=== PATIENT | female | born 1985 | race Caucasian/White ===

== ENCOUNTER → 2018-05-27 07:11 | Outpatient (CLI) | payer OTHER, SELFPAY ==
--- NOTE | 2018-05-27 07:13 | DI.US.S_ITS ---
PROCEDURE: US OB <= 14 WEEKS FETUS INDICATIONS: DATES OUTSIDE/PRIOR DATING DATA: Last menstrual period (LMP): 03/29/18. LMP-based estimated date of delivery (VIKAS): 01/03/18. First dating scan (date and location): 05/27/18. Estimated date of delivery (VIKAS) from first dating scan: 01/17/19. TECHNIQUE: Real-time scanning was performed of the fetus and maternal pelvic organs, with image documentation. Endovaginal scanning was also performed to better visualize the fetus and maternal ovaries. COMPARISON: None. FINDINGS: Embryo: [place]-rump length measures 7 mm corresponding to 6 weeks 3 days. Heart rate measures 111 beats per minute. Measurement variability in dating: +/- 4 weeks by LMP, +/- 7 days by mean sac diameter (use before 6 weeks gestation if crown-rump length not able to be measured), +/- 5 days by crown-rump length (up to 8 weeks 6 days gestation), +/- 7 days by crown-rump length (up to 13 weeks 6 days gestation). Maternal organs: Ovaries within normal limits. Limited images through the kidneys demonstrate no hydronephrosis. IMPRESSION: 6 week 3 day single living IUP. Dictated by: Ozzie Harmon [facility] Interpreted: Kodi Palacios MD on 05/27/2018 at 8:31 Approved by: Kodi Palacios M.D. on 05/27/2018 at 9:53
[2018-05-27 11:48] LABS: Add Manual Diff / Slide Review NO; Basophils Percent Auto 0.6 % (0-2); Eosinophils Percent Auto 0.9 % (2-4); Hematocrit 35.2 % (36-46); Hemoglobin 12.1 g/dL (12.0-16.0); Lymphocytes Percent Auto 32.3 % (25-40); Mean Corpuscular HGB Conc 34.3 % (30-36); Mean Corpuscular Hemoglobin 30.8 PG (26-34); Mean Corpuscular Volume 89.7 fL (80-100); Monocytes Percent Auto 6.9 % (3-14); Neutrophils Absolute Auto 4900 /uL (3000-5900); Neutrophils Percent Auto 59.3 % (50-75); Platelet Count 216 X10^3/uL (150-400); Red Blood Cell Count 3.92 X10^6/uL (4.0-5.2); White Blood Cell Count 8.2 X10^3/uL (4.5-11.0)
[2018-05-27 13:04] LABS: Hepatitis B Surface Antigen NEGATIVE s/c (NEGATIVE)
[2018-05-27 13:19] LABS: Appearance Urine UA CLEAR; Bilirubin Urine UA NEGATIVE (NEGATIVE); Color Urine UA YELLOW; Glucose Urine UA NEGATIVE (Normal); Ketones Urine UA NEGATIVE (NEGATIVE); Leukocyte Esterase Urine UA NEGATIVE (NEGATIVE); Nitrite Urine UA NEGATIVE (Negative); Occult Blood Urine UA NEGATIVE (Negative); Protein Urine UA NEGATIVE (Negative); Specific Gravity Urine UA 1.015 (1.000-1.035); Urobilinogen Urine UA 0.2 E.U./dL (0.2)
[2018-05-27 13:25] LABS: HIV 1 and 2 Antibody NEGATIVE (NEGATIVE); Hep C Virus Ab w/Reflex Quant NEGATIVE s/c (NEGATIVE)
[2018-05-28 11:12] LABS: RPR Screen Nonreactive (Nonreactive)
[2018-05-28 15:00] LABS: HSV1IGG < 0.90 index (< 0.90)
== END ==
PROVIDERS: Visit Provider Specialist
DX: Z34.01 Encounter for supervision of normal first pregnancy, first trimester (principal); Z3A.01 Less than 8 weeks gestation of pregnancy
CPT/HCPCS: 36415; 76801; 76817; 80055; 81003; 86695; 86696; 86703; 86787; 86803; 86850; 86900; 86901; 87086

== ENCOUNTER → 2018-07-08 15:13 | Outpatient (CLI) | payer OTHER, SELFPAY ==
[2018-07-08 15:38] LABS: Appearance Urine UA CLEAR; Bilirubin Urine UA NEGATIVE (NEGATIVE); Color Urine UA YELLOW; Glucose Urine UA NEGATIVE (Negative); Ketones Urine UA NEGATIVE (NEGATIVE); Leukocyte Esterase Urine UA NEGATIVE (NEGATIVE); Nitrite Urine UA NEGATIVE (Negative); Occult Blood Urine UA TRACE-LYSED (Negative); Protein Urine UA NEGATIVE (Negative); Specific Gravity Urine UA <=1.005 (1.000-1.035); Urobilinogen Urine UA 0.2 E.U./dL (0.2); pH Urine UA 5.5 (4.5-8.0)
[2018-07-08 15:49] LABS: RBC Urine 5-10/HPF (0-5/HPF); Squamous Epithelial Cell Urine 1-5 /HPF; WBC Urine 1-5/HPF (0-5/HPF)
[2018-07-08 15:50] LABS: Bacteria Urine Moderate (10-30)
== END ==
PROVIDERS: Visit Provider Specialist
DX: R39.9 Unspecified symptoms and signs involving the genitourinary system (principal)
CPT/HCPCS: 81001

== ENCOUNTER → 2018-08-22 15:33 | Outpatient (CLI) | payer OTHER, SELFPAY ==
[2018-08-29 15:12] LABS: AFP, Serum 37.8 ng/mL; Calc Gestational Age 18.9; Cigarette Smoker N; Donated Egg NOT GIVEN; Donor Egg Age NOT GIVEN; Estriol, Free 1.98 ng/mL; Inhibin A, Dimeric 300 pg/mL; Maternal Ethnicity NOT GIVEN; Maternal Weight 140 lbs; Number of Fetuses 1; Previous Pregnancy Down Syndro NOT GIVEN; hCG, MoM 0.72; hCG, Serum 16.4 IU/mL
== END ==
PROVIDERS: Visit Provider Specialist
DX: Z3A.18 18 weeks gestation of pregnancy (principal)
CPT/HCPCS: 36415; 82105; 82677; 84702; 86336

== ENCOUNTER → 2018-09-23 14:48 | Outpatient (CLI) | payer OTHER, SELFPAY ==
--- NOTE | 2018-09-23 14:49 | DI.US.S_ITS ---
PROCEDURE: US OB >= 14 WEEKS FETUS INDICATIONS: ANATOMY SCAN OUTSIDE/PRIOR DATING DATA: Last menstrual period (LMP): 03/29/18. LMP-based estimated date of delivery (VIKAS): 01/03/19. First dating scan (date and location): 05/27/20. Estimated date of delivery (VIKAS) from first dating scan: 01/17/19. TECHNIQUE: Real-time scanning was performed of the fetus, with image documentation and biometric measurements. Endovaginal scanning: No COMPARISON: [facility], OB <= 14 WEEKS FETUS, 06/17/2018, 9:11. [facility], OB <= 14 WEEKS FETUS, 05/27/2018, 7:23. [facility], , OB > 14 WEEKS, 08/22/2018, 15:18. FINDINGS: General: A single living intrauterine gestation is present. Presentation: Vertex. Placenta: Placental position is anterior, without previa. Amniotic fluid index: 15.3 cm. heart rate: 140 beats per minute. Maternal cervical canal: 4.0 cm. biometrics: Biparietal diameter: 23 weeks 6 days Head circumference: 24 weeks 3 days Abdominal circumference: 24 weeks 4 days Femur length: 22 weeks 2 days Estimated gestational age from initial scan: 23 weeks 3 days Composite gestational age from present scan: 23 weeks 4 days Estimated weight and percentile: 618 g; 54th percentile Measurement variability for biometric dating: +/- 7 days from 14 weeks to 15 weeks 6 days gestation, +/- 10 days from 16 weeks to 21 weeks 6 days gestation, +/- 2 weeks from 22 weeks to 27 weeks 6 days gestation, +/- 3 weeks for 28 weeks gestation or later. weight reference: 4500 g or EFW >90/95% is considered macrosomia or large for gestational age. EFW <10% is small for gestational age. EFW 5% or less is considered intra-uterine growth restriction. Anatomic survey: Neuro: Ventricles are non-dilated at 9 mm. Cisterna magna is normal at 7 mm. Cerebellum is normal in size and morphology. Nuchal skin fold: Normal at 3 mm. Face: Nose and lips are within normal limits. The facial profile is not well-seen on this exam. Spine: No ultrasound evidence for spina bifida. Heart: 4-chambered heart is present. Exam is mildly degraded by motion artifact; within this context, the right and left ventricular outflow tracts appear grossly unremarkable. Diaphragm: Diaphragm is intact. Stomach: Left-sided stomach is present. Kidneys: No hydronephrosis identified Cord: 3-vessel cord noted. Bladder: Unremarkable in size. Extremities: All 4 extremities identified. IMPRESSION: Single intrauterine gestation with heart rate of 140 beats per minute and composite gestational age of 23 weeks 4 days. anatomic findings as described above; the facial profile is not well-seen on this exam, and the ventricular outflow tracts are mildly degraded by motion artifact. Attention on followup exams suggested. Dictated by: Ozzie Harmon [facility] Interpreted: Watson Huffman MD on 09/23/2018 at 16:21 Approved by: Watson Huffman M.D. on 09/24/2018 at 2:09
== END ==
PROVIDERS: Visit Provider Specialist
DX: Z34.02 Encounter for supervision of normal first pregnancy, second trimester (principal); Z3A.23 23 weeks gestation of pregnancy
CPT/HCPCS: 76811

== ENCOUNTER → 2018-09-30 08:16 | Outpatient (CLI) | payer OTHER, SELFPAY ==
--- NOTE | 2018-09-30 08:17 | DI.US.S_ITS ---
PROCEDURE: US OB FOLLOW UP INDICATIONS: F/U Heart structures and facial profile not well visualized OUTSIDE/PRIOR DATING DATA: Last menstrual period (LMP): 03/29/18. LMP-based estimated date of delivery (VIKAS): 01/03/19. First dating scan (date and location): 05/27/20. Estimated date of delivery (VIKAS) from first dating scan: 01/17/19, plus or -5 days. TECHNIQUE: Real-time scanning was performed of the fetus, with image documentation. Endovaginal scanning: Not needed for this study. COMPARISON: None. FINDINGS: A single living intrauterine gestation is present. Presentation: Vertex. Placenta: Placental position is anterior, without previa. Amniotic fluid index: 14.3 cm, normal range is 5-24 cm. heart rate: 139 beats per minute. Maternal cervical canal: 3.9 cm long. Normal lower limit is 2.5 cm. This limited OB ultrasound is to further evaluate for facial appearance and cardiac appearance, including left and right ventricular outflow tract. These all appeared normal. IMPRESSION: Completion of anatomic survey, no abnormality found, delivery date is projected to be centered on 01/17/19, + or -5 days. Dictated by: Han Reyez M.D. on 10/02/2018 at 14:12 Approved by: Han Reyez M.D. on 10/02/2018 at 14:52
== END ==
PROVIDERS: Visit Provider Specialist
DX: Z36.89 Encounter for other specified antenatal screening (principal); Z3A.25 25 weeks gestation of pregnancy
CPT/HCPCS: 76816

== ENCOUNTER → 2018-10-14 08:42 | Outpatient (CLI) | payer OTHER, SELFPAY ==
[2018-10-14 10:32] LABS: GTT (PREG) 1 Hour PP 50gm Dose 105 mg/dL (76-139)
[2018-10-14 10:38] LABS: Hematocrit 29.7 % (36-46); Hemoglobin 10.2 g/dL (12.0-16.0)
== END ==
PROVIDERS: Visit Provider Specialist
DX: Z34.02 Encounter for supervision of normal first pregnancy, second trimester (principal); Z3A.26 26 weeks gestation of pregnancy
CPT/HCPCS: 36415; 82950; 85014; 85018

== ENCOUNTER → 2018-11-18 15:00 | Oncology outpatient (ONC) | payer OTHER, SELFPAY ==
--- NOTE | 2018-10-29 09:33 | ONC.SCHED ---
Traci does not require [facility], Info Only
[2018-11-04] MEDS: IRON SUCROSE 200 MG in SODIUM CHLORIDE 0.9% 100 ML 440 ML IV (11:04)
[2018-11-04 11:16] VITALS: BP 105/64; PULSE 87; RESP 18; TEMP 36.8; O2SAT 95
[2018-11-07] MEDS: IRON SUCROSE 200 MG in SODIUM CHLORIDE 0.9% 100 ML 440 ML IV (15:50)
[2018-11-07 16:35] VITALS: BP 102/57; PULSE 73; RESP 16; TEMP 37.1
[2018-11-11] MEDS: IRON SUCROSE 200 MG in SODIUM CHLORIDE 0.9% 100 ML 110 ML IV (15:36)
[2018-11-11 15:42] VITALS: BP 105/58; PULSE 80; RESP 16; TEMP 36.7; O2SAT 97
[2018-11-14 16:24] VITALS: BP 107/57; PULSE 78; RESP 16; TEMP 36.7; O2SAT 94
[2018-11-14] MEDS: IRON SUCROSE 200 MG in SODIUM CHLORIDE 0.9% 100 ML 440 ML IV (16:24)
[2018-11-18] MEDS: IRON SUCROSE 200 MG in SODIUM CHLORIDE 0.9% 100 ML 440 ML IV (15:59)
[2018-11-18 16:52] VITALS: BP 100/60; PULSE 68; RESP 16; TEMP 36.7; O2SAT 96
== END ==
PROVIDERS: Visit Provider Specialist
DX: O28.0 Abnormal hematological finding on antenatal screening of mother (principal); Z3A.31 31 weeks gestation of pregnancy
CPT/HCPCS: 96365; J1756

== ENCOUNTER → 2018-11-29 08:25 | Outpatient (CLI) | payer OTHER, SELFPAY ==
[2018-11-29 09:22] LABS: Hematocrit 32.8 % (36-46); Hemoglobin 11.3 g/dL (12.0-16.0)
== END ==
PROVIDERS: Visit Provider Specialist
DX: O99.019 Anemia complicating pregnancy, unspecified trimester (principal); Z3A.30 30 weeks gestation of pregnancy
CPT/HCPCS: 36415; 85014; 85018

== ENCOUNTER → 2018-12-23 09:51 | Outpatient (CLI) | payer OTHER, SELFPAY ==
[2018-12-24 15:11] LABS: Strep Grp B PCR NEG for Grp B Strep
== END ==
PROVIDERS: Visit Provider Specialist
DX: Z34.83 Encounter for supervision of other normal pregnancy, third trimester (principal); Z3A.36 36 weeks gestation of pregnancy
CPT/HCPCS: 87653

== ENCOUNTER 2019-01-13 21:28 | Inpatient (IN) | payer OTHER, SELFPAY ==
[2019-01-13 22:20] VITALS: BP 116/57
[2019-01-13 23:25] LABS: Add Manual Diff / Slide Review NO; Basophils Absolute Auto 0 /uL (0-100); Basophils Percent Auto 0.2 % (0-2); Eosinophils Absolute Auto 100 /uL (0-450); Eosinophils Percent Auto 0.8 % (2-4); Hemoglobin 11.6 g/dL (12.0-16.0); Lymphocytes Absolute Auto 2200 /uL (1100-4500); Mean Corpuscular Hemoglobin 31.8 PG (26-34); Mean Corpuscular Volume 93.5 fL (80-100); Monocytes Absolute Auto 600 /uL (0-900); Monocytes Percent Auto 6.8 % (3-14); Neutrophils Absolute Auto 6600 /uL (1500-7000); Neutrophils Percent Auto 69.2 % (50-75); Platelet Count 186 X10^3/uL (150-400); Red Blood Cell Count 3.64 X10^6/uL (4.0-5.2); Red Cell Distribution Width 13.8 % (11.6-14.8); White Blood Cell Count 9.6 X10^3/uL (4.5-11.0)
--- NOTE | 2019-01-14 07:19 | PM.OBHP.1 ---
OB HPI Date/Time Date of admission: 01/14/19 Date Patient Seen: 01/14/19 Time Patient Seen: 07:20 History of Present Condition Chief complaint: : 2 Para: 1 Estimated Date of Delivery: 01/17/19 Estimated Gestational Age (weeks): 39 Narrative: Sandra Goel is a 33 year old female two para one two para one who has had an uneventful . The patient's was complicated only by anemia. She is GBS negative. Her glucose screen was negative. Her antepartum abnormality screenings were entirely normal. Patient had adequate fundal growth and remained normotensive throughout her . Indications Indication for induction OB: other (Premature spontaneous rupture the membranes) History of Present care: good care, initiated at week # (9) and pounds weight gain (41 lb) Dating criteria: LMP confirmed by 1st trimester US Ultrasounds: normal 1st trimester US and normal mid trimester US Obstetrical complications: none Medical complications: none Preadmission Labs Blood type: A (+) positive -: Antibody screen: negative, Cystic fibrosis screen: unknown, GBS status: negative, HBsAG: negative, HIV: negative, HSV 1: negative, HSV 2: negative and RPR/VDLR: negative -: Chlamydia screen: detected (Negative) and Gonorrhea screen: detected (Negative) -: Rubella: immune and Varicella: immune HCT: 30 HCAB: negative PAP: Normal Integrated screen: Negative Sequential screen: Negative Quad screen: Normal 1 hr GTT: 105 Evaluation Evaluation Laboratory results: Laboratory Tests 01/13/19 01/13/19 22:30 22:30 WBC 9.6 RBC 3.64 L Hgb 11.6 L Hct 34.0 L MCV 93.5 MCH 31.8 MCHC 34.0 RDW 13.8 Plt Count 186 Neut % (Auto) 69.2 Lymph % (Auto) 23.0 L [place] % (Auto) 6.8 Eos % (Auto) 0.8 L Baso % (Auto) 0.2 Neut # (Auto) 6600 Lymph # (Auto) 2200 [place] # (Auto) 600 Eos # (Auto) 100 Baso # (Auto) 0 Blood Type A Positive Antibody Screen Negative [facility] Medical History Atypical mole (Chronic) Positive PPD (Chronic) Social History Smoking Status: Never smoker Social History Smoking Status: Never smoker Meds Home Medications Medication Instructions Recorded Confirmed Type 1 tab PO DAILY 05/27/18 01/13/19 History vitamin,calcium,qlqjncec-kjdm-cnpmk acid tablet Allergies Allergy/AdvReac Type Severity Reaction Status Date / Time Sulfa (Sulfonamide Allergy Unknown Verified 01/13/19 22:20 Antibiotics) [SULFA (SULFONAMIDE ANTIBIOTICS)] Review of Systems Review of Systems All systems reviewed & are unremarkable except as noted in HPI and below Exam Const General: cooperative and healthy appearing [facility] Head: normal to inspection Ears: hearing grossly normal bilaterally Nose: external nose normal Face and sinus: normal facial exam Mouth: oral mucosae normal, lip normal, tongue normal and moist mucous membranes Teeth and gingiva: dentition normal Throat: posterior oropharynx normal Eyes General: appearance normal, both eyes and all related structures Neck Neck: normal visual inspection and full ROM Chest Chest: normal inspection of the chest and normal palpation of entire chest wall Breast inspection: normal inspection of the breasts and normal inspection of the axillae Breast Palpation: normal palpation of the breasts and normal palpation of the axillae Resp Effort & Inspection: normal respiratory effort Auscultation: clear to auscultation bilaterally Cardio Palpation: normal PMI Rate: regular rate Rhythm: regular rhythm Heart Sounds: S1 normal and S2 normal GI Inspection: normal to inspection Palpation: soft and no hepatosplenomegaly Percussion: normal to percussion Auscultation: normal bowel sounds Uterus Location (Fundal Height): 40 Presentation: vertex Estimated Weight (lbs): 8 Amniotic Fluid: clear Back/Spine/Pelvis Thoracic/Lumbar Spine: thoracic and lumbar spine normal to inspection Skin General: no rashes or lesions noted Neuro General: alert, oriented x3, tone normal and moves all extremities Cognition: normal cognition Speech: speech normal Gait: normal gait Motor: muscle tone normal throughout Sensory Exam: no sensory deficits noted Extrem General: normal to inspection and normal exam except as noted Psych Appearance: grossly normal and well kempt Mental Status: mental status grossly normal Speech and Movement: speech and movement normal Objective Labs Result Diagrams: 01/13/19 22:30 Labs: Laboratory Results - last 24 hr 01/13/19 01/13/19 22:30 22:30 WBC 9.6 RBC 3.64 L Hgb 11.6 L Hct 34.0 L MCV 93.5 MCH 31.8 MCHC 34.0 RDW 13.8 Plt Count 186 Neut % (Auto) 69.2 Lymph % (Auto) 23.0 L [place] % (Auto) 6.8 Eos % (Auto) 0.8 L Baso % (Auto) 0.2 Neut # (Auto) 6600 Lymph # (Auto) 2200 [place] # (Auto) 600 Eos # (Auto) 100 Baso # (Auto) 0 Blood Type A Positive Antibody Screen Negative Assessment and Plan Assessment and Plan Assessment and Plan narrative: Term intrauterine Premature spontaneous rupture membranes
--- NOTE | 2019-01-14 07:31 | P.HPOB_ITS ---
OB HPI Date/Time Date of admission: 01/14/19 Date Patient Seen: 01/14/19 Time Patient Seen: 07:20 History of Present Condition Chief complaint: : 2 Para: 1 Estimated Date of Delivery: 01/17/19 Estimated Gestational Age (weeks): 39 Narrative: Sandra Goel is a 33 year old female two para one two para one who has had an uneventful . The patient's was complicated only by anemia. She is GBS negative. Her glucose screen was negative. Her antepartum abnormality screenings were entirely normal. Patient had adequate fundal growth and remained normotensive throughout her . Indications Indication for induction OB: other (Premature spontaneous rupture the membranes) History of Present care: good care, initiated at week # (9) and pounds weight gain (41 lb) Dating criteria: LMP confirmed by 1st trimester US Ultrasounds: normal 1st trimester US and normal mid trimester US Obstetrical complications: none Medical complications: none Preadmission Labs Blood type: A (+) positive -: Antibody screen: negative, Cystic fibrosis screen: unknown, GBS status: negative, HBsAG: negative, HIV: negative, HSV 1: negative, HSV 2: negative and RPR/VDLR: negative -: Chlamydia screen: detected (Negative) and Gonorrhea screen: detected (Negative) -: Rubella: immune and Varicella: immune HCT: 30 HCAB: negative PAP: Normal Integrated screen: Negative Sequential screen: Negative Quad screen: Normal 1 hr GTT: 105 Evaluation Evaluation Laboratory results: Laboratory Tests 01/13/19 01/13/19 22:30 22:30 WBC 9.6 RBC 3.64 L Hgb 11.6 L Hct 34.0 L MCV 93.5 MCH 31.8 MCHC 34.0 RDW 13.8 Plt Count 186 Neut % (Auto) 69.2 Lymph % (Auto) 23.0 L [place] % (Auto) 6.8 Eos % (Auto) 0.8 L Baso % (Auto) 0.2 Neut # (Auto) 6600 Lymph # (Auto) 2200 [place] # (Auto) 600 Eos # (Auto) 100 Baso # (Auto) 0 Blood Type A Positive Antibody Screen Negative [facility] Medical History Atypical mole (Chronic) Positive PPD (Chronic) Social History Smoking Status: Never smoker Social History Smoking Status: Never smoker Meds Home Medications Medication Instructions Recorded Confirmed Type 1 tab PO DAILY 05/27/18 01/13/19 History vitamin,calcium,xccslztw-bugh-bsthx acid tablet Allergies Allergy/AdvReac Type Severity Reaction Status Date / Time Sulfa (Sulfonamide Allergy Unknown Verified 01/13/19 22:20 Antibiotics) [SULFA (SULFONAMIDE ANTIBIOTICS)] Review of Systems Review of Systems All systems reviewed & are unremarkable except as noted in HPI and below Exam Const General: cooperative and healthy appearing [facility] Head: normal to inspection Ears: hearing grossly normal bilaterally Nose: external nose normal Face and sinus: normal facial exam Mouth: oral mucosae normal, lip normal, tongue normal and moist mucous membranes Teeth and gingiva: dentition normal Throat: posterior oropharynx normal Eyes General: appearance normal, both eyes and all related structures Neck Neck: normal visual inspection and full ROM Chest Chest: normal inspection of the chest and normal palpation of entire chest wall Breast inspection: normal inspection of the breasts and normal inspection of the axillae Breast Palpation: normal palpation of the breasts and normal palpation of the a xillae Resp Effort & Inspection: normal respiratory effort Auscultation: clear to auscultation bilaterally Cardio Palpation: normal PMI Rate: regular rate Rhythm: regular rhythm Heart Sounds: S1 normal and S2 normal GI Inspection: normal to inspection Palpation: soft and no hepatosplenomegaly Percussion: normal to percussion Auscultation: normal bowel sounds Uterus Location (Fundal Height): 40 Presentation: vertex Estimated Weight (lbs): 8 Amniotic Fluid: clear Back/Spine/Pelvis Thoracic/Lumbar Spine: thoracic and lumbar spine normal to inspection Skin General: no rashes or lesions noted Neuro General: alert, oriented x3, tone normal and moves all extremities Cognition: normal cognition Speech: speech normal Gait: normal gait Motor: muscle tone normal throughout Sensory Exam: no sensory deficits noted Extrem General: normal to inspection and normal exam except as noted Psych Appearance: grossly normal and well kempt Mental Status: mental status grossly normal Speech and Movement: speech and movement normal Objective Labs Result Diagrams: 01/13/19 22:30 Labs: Laboratory Results - last 24 hr 01/13/19 01/13/19 22:30 22:30 WBC 9.6 RBC 3.64 L Hgb 11.6 L Hct 34.0 L MCV 93.5 MCH 31.8 MCHC 34.0 RDW 13.8 Plt Count 186 Neut % (Auto) 69.2 Lymph % (Auto) 23.0 L [place] % (Auto) 6.8 Eos % (Auto) 0.8 L Baso % (Auto) 0.2 Neut # (Auto) 6600 Lymph # (Auto) 2200 [place] # (Auto) 600 Eos # (Auto) 100 Baso # (Auto) 0 Blood Type A Positive Antibody Screen Negative Assessment and Plan Assessment and Plan Assessment and Plan narrative: Term intrauterine Premature spontaneous rupture membranes
[2019-01-14] MEDS: miSOPROStol 25 MCG TABLET VAG ×2 (08:30→12:46)
[2019-01-14] MEDS: LACTATED RINGERS 1,000 ML 100 ML IV ×2 (16:28→22:20)
[2019-01-14] MEDS: OXYTOCIN PREMIX 30 UNIT/500 ML PLAST..BAG IV (16:50)
--- NOTE | 2019-01-14 20:02 | P.TNLD_ITS ---
Visit Information Visit Information Date of evaluation: 01/14/19 Primary OB Provider: Rajwinder Pina [facility] Medical History Atypical mole (Chronic) Positive PPD (Chronic) Social History Smoking Status: Never smoker Social History Smoking Status: Never smoker Objective Labs Result Diagrams: 01/13/19 22:30 Labs: Laboratory Results - last 24 hr 01/13/19 01/13/19 22:30 22:30 WBC 9.6 RBC 3.64 L Hgb 11.6 L Hct 34.0 L MCV 93.5 MCH 31.8 MCHC 34.0 RDW 13.8 Plt Count 186 Neut % (Auto) 69.2 Lymph % (Auto) 23.0 L [place] % (Auto) 6.8 Eos % (Auto) 0.8 L Baso % (Auto) 0.2 Neut # (Auto) 6600 Lymph # (Auto) 2200 [place] # (Auto) 600 Eos # (Auto) 100 Baso # (Auto) 0 Blood Type A Positive Antibody Screen Negative Evaluation Evaluation Laboratory results: Laboratory Tests 01/13/19 01/13/19 22:30 22:30 WBC 9.6 RBC 3.64 L Hgb 11.6 L Hct 34.0 L MCV 93.5 MCH 31.8 MCHC 34.0 RDW 13.8 Plt Count 186 Neut % (Auto) 69.2 Lymph % (Auto) 23.0 L [place] % (Auto) 6.8 Eos % (Auto) 0.8 L Baso % (Auto) 0.2 Neut # (Auto) 6600 Lymph # (Auto) 2200 [place] # (Auto) 600 Eos # (Auto) 100 Baso # (Auto) 0 Blood Type A Positive Antibody Screen Negative
--- NOTE | 2019-01-14 20:03 | PM.OBPNLAB ---
Date/Time Date Patient Seen: 01/14/19 Time Patient Seen: 20:03 Pain Control Pain control: tolerating well Pelvic Exam Dilation (cm): 6 Effacement (%): 85 station: -1 Amniotic membrane status: Ruptured Contractions Contractions on admission: irregular Monitor mode: External Pitocin rate (mU/min): 4 Contraction frequency (min): 2 Contraction duration (min): 1 Contraction pattern: Regular Contraction intensity: Strong/Firm Status status: Category l Heart Rate Baseline: 130 Monitor Accelerations: Present Monitor Decelerations: Absent Monitor Variability: Moderate Assessment and Plan Assessment: active labor and induction ongoing Plan: continuous present management and other (Hands and knees, changing positions, peanut ball)
[2019-01-14] MEDS: CEFAZOLIN 2 GM/100 ML FROZ.PIGGY IV (20:10)
[2019-01-15] MEDS: LACTATED RINGERS 1,000 ML 500 ML IV (00:52)
--- NOTE | 2019-01-15 03:10 | PM.OBPRVD ---
Events: Labor Augmentation, Premature Rupture of Membrane and Prolonged Rupture of Membrane Delivery date: 01/15/19 Intrapartal events: Intolerance Cervical ripening method: per misoprostal protocol Induction method: per pitocin protocol Delivery augmentation: pitocin Delivery monitor: external FHT and external uterine Route of delivery: forceps (Laufe) Indication for instrumentation: nonreassuring FHR tracing L&D Laceration Description: Perineal - 3rd Degree Delivery repair: vicryl and chromic Estimated blood loss (mL): 200 Anesthesia type: Epidural Complications: None Narrative: The patient was complete and pushed for 25 minutes. At 2:11 a.m., the vertex delivered with outlet forceps using the Laufe's, over an intact perineum. The forceps were placed due to recurrent deep variable decelerations with pushing. A tight nuchal cord was cut on the perineum. The remainder of the body delivered without difficulty and was placed on mom's abdomen. Cord blood was obtained under sterile conditions for cord blood banking. Pitocin was given in the IV fluids. The placenta delivered intact with a 3 vessel cord at 2:18 a.m. the fundus was massaged to firm. A partial third-degree laceration was noted. This was repaired on the sphincter fascia with 0 Vicryl. The vaginal mucosa was reapproximated using 2 0 Vicryl. The perineum was reapproximated using 2 0 Vicryl. The skin was closed with 3 0 chromic in a subcuticular fashion. Three retention sutures were placed on the perineum using 3 0 chromic. Hemostasis was achieved. A rectal exam was performed and there were no stitches or tears into the rectum. Estimated blood loss 200 cc. Apgars 6 at 1 minute and 8 at 5 minutes. Epidural analgesia. . Mom and infant stable to recovery. Plan for aftercare: To routine care
--- NOTE | 2019-01-15 03:16 | P.PCNOB_ITS ---
Events: Labor Augmentation, Premature Rupture of Membrane and Prolonged Rupture of Membrane Delivery date: 01/15/19 Intrapartal events: Intolerance Cervical ripening method: per misoprostal protocol Induction method: per pitocin protocol Delivery augmentation: pitocin Delivery monitor: external FHT and external uterine Route of delivery: forceps (Laufe) Indication for instrumentation: nonreassuring FHR tracing L&D Laceration Description: Perineal - 3rd Degree Delivery repair: vicryl and chromic Estimated blood loss (mL): 200 Anesthesia type: Epidural Complications: None Narrative: The patient was complete and pushed for 25 minutes. At 2:11 a.m., the vertex delivered with outlet forceps using the Laufe's, over an intact perineum. The forceps were placed due to recurrent deep variable decelerations with pushing. A tight nuchal cord was cut on the perineum. The remainder of the body delivered without difficulty and was placed on mom's abdomen. Cord blood was obtained under sterile conditions for cord blood banking. Pitocin was given in the IV fluids. The placenta delivered intact with a 3 vessel cord at 2:18 a.m. the fundus was massaged to firm. A partial third-degree laceration was noted. This was repaired on the sphincter fascia with 0 Vicryl. The vaginal mucosa was reapproximated using 2 0 Vicryl. The perineum was reapprox imated using 2 0 Vicryl. The skin was closed with 3 0 chromic in a subcuticular fashion. Three retention sutures were placed on the perineum using 3 0 chromic. Hemostasis was achieved. A rectal exam was performed and there were no stitches or tears into the rectum. Estimated blood loss 200 cc. Apgars 6 at 1 minute and 8 at 5 minutes. Epidural analgesia. . Mom and stable to recovery. Plan for aftercare: To routine care
[2019-01-15] MEDS: IBUPROFEN 600 MG TABLET PO ×2 (06:44→17:30)
[2019-01-15] MEDS: DERMOPLAST SPRAY 20% 60 ML 1 SPRAY TOP (06:44)
[2019-01-15 07:49] LABS: Specimen Label Kit collection
[2019-01-16] MEDS: IBUPROFEN 600 MG TABLET PO ×2 (00:36→10:33)
[2019-01-16 08:26] LABS: Hemoglobin 11.3 g/dL (12.0-16.0)
[2019-01-16] MEDS: DOCUSATE 250 MG CAPSULE PO (10:32)
[2019-01-16] MEDS: PRENATAL VIT,CALC/IRON/FOLIC 1 TABLET 1 TAB PO (10:33)
[2019-01-16 14:19] VITALS: BP 109/47; PULSE 76; RESP 17; TEMP 36.6
--- NOTE | 2019-02-05 13:16 | P.DS_ITS ---
Discharge Providers Date of admission: 01/13/19 21:28 Discharge Date: 01/16/19 Consults: 01/15/19 06:28 Consult to Obstetrics And Gynecology Professor Routine Comment: Discharge provider: Christine Johnson MD Summary Date Patient Seen: 01/16/19 Time Patient Seen: 07:30 Procedures: Epidural analgesia Outlet forceps delivery Third-degree laceration repair Hospital Course: Patient is a 33-year-old 1 para 1 who presented on 01/14/2019 with spontaneous rupture of membranes. She did not go into labor spontaneously. Pitocin augmentation was added. She received an epidural for pain management. She progressed in labor and while pushing the baby was having deep variable decelerations. Outlet forceps were applied. A third-degree laceration was repaired. Her course was unremarkable and she was discharged home on 01/16/2019. Peripartum Data Infant Delivery Method: Assisted Delivery (Outlet forceps) Laceration description: Perineal - 3rd Degree Episiotomy description: None Procedures: Epidural analgesia Outlet forceps delivery Pitocin augmentation of labor Third-degree laceration repair complications: none Status at Discharge Cognitive/behavioral status at discharge: oriented Functional status at discharge: independent ambulation Overall status at discharge: patient is progressing back to baseline Time Spent with Patient Total time spent providing and/or coordinating discharge services: Less than 30 minutes Objective Labs Result Diagrams: 01/16/19 08:10 Exam Vital Signs (past 8 hours): Generally: Patient is sitting up in bed, holding , no acute distress Fundus: Firm at U -2 Extremities: Negative Homans, no edema Discharge Plan Discharge Plan Patient Disposition: Home Discharge comment: Call with fever, chills or bleeding vaginally more than a pad in an hour Discharge Med Rec/Prescriptions Prescriptions: Continued prenat.vits,kandi,inc-ozlx-indxw tablet 1 tab PO DAILY RF: 0 No Action ibuprofen 200 mg tablet 400 mg PO TID PRNRF: 0 probiotic PO DAILY RF: 0 Follow up/Referrals: Rajwinder Pina MD [Physician] - 6 Weeks (Please follow up with Dr. Pina sundayFeb 07 at 8;15 check-in. Please call for nay questions/concerns or to reschedule. ) Provider Discharge Instructions Activity: No intercourse Skin/Wound/Dressing Care Report to your healthcare provider any signs of infection, such as:: chills, fever, increased pain and unusual drainage Visit Report/Discharge Packet Instructions: DI for Labor and Delivery, Vaginal Stand Alone Forms: Discharge: Care Discharge Data Attending Provider: Cipriano Hallman Admit Date/Time: 01/13/19 21:28 Discharges patient from system. Discharge Date/Time: 01/16/19 17:00
== END 2019-01-16 17:00 | disposition home or self-care (01) | DRG 768 ==
PROVIDERS: Specialist
DX: O42.12 Full-term premature rupture of membranes, onset of labor more than 24 hours following rupture (principal); Z37.0 Single live birth; O70.20 Third degree perineal laceration during delivery, unspecified; Z3A.39 39 weeks gestation of pregnancy; O69.1XX0 Labor and delivery complicated by cord around neck, with compression, not applicable or unspecified; O76 Abnormality in fetal heart rate and rhythm complicating labor and delivery
CPT/HCPCS: 01967; 36415; 59025; 59050; 59200; 59400; 59409; 76815; 84112; 85014; 85018; 85025; 86850; 86900; 86901; G0379; J0690; J2590

== ENCOUNTER → 2019-01-25 13:34 | Outpatient (CLI) | payer OTHER, SELFPAY | PROVIDERS: Visit Provider Physician Assistant | DX: N39.0 Urinary tract infection, site not specified (principal); R31.9 Hematuria, unspecified | CPT/HCPCS: 87086 ==

== ENCOUNTER → 2019-01-30 14:19 | Outpatient (CLI) | payer OTHER, SELFPAY | PROVIDERS: Visit Provider Nurse Practitioner Family | DX: N89.8 Other specified noninflammatory disorders of vagina (principal) | CPT/HCPCS: 87210 ==

== ENCOUNTER → 2020-02-16 15:16 | Outpatient (CLI) | payer OTHER, SELFPAY ==
[2020-02-18 02:10] LABS: COVID19 Sendout Not Detected (Not Detected)
== END ==
PROVIDERS: PCP Nurse Practitioner Family; Visit Provider Physician Assistant
DX: Z11.59 Encounter for screening for other viral diseases (principal); J02.9 Acute pharyngitis, unspecified
CPT/HCPCS: 87070; 87635

== ENCOUNTER → 2020-04-16 11:23 | Outpatient (CLI) | payer OTHER, SELFPAY ==
[2020-04-18 13:11] LABS: COVID19 Sendout Not Detected
== END ==
PROVIDERS: PCP Nurse Practitioner Family; Visit Provider Physician Assistant
DX: Z03.818 Encounter for observation for suspected exposure to other biological agents ruled out (principal)
CPT/HCPCS: 87635

== ENCOUNTER → 2020-05-28 12:46 | Outpatient (CLI) | payer OTHER, SELFPAY ==
[2020-05-28 13:20] LABS: COVID19 -Nasal RAPID Negative (Negative)
== END ==
PROVIDERS: PCP Nurse Practitioner Family; Visit Provider Physician Assistant
DX: Z11.59 Encounter for screening for other viral diseases (principal)
CPT/HCPCS: 87635

== ENCOUNTER → 2020-10-16 08:33 | Outpatient (CLI) | payer OTHER, SELFPAY ==
[2020-10-16 09:15] LABS: Add Manual Diff / Slide Review NO; Basophils Absolute Auto 0 /uL (0-100); Basophils Percent Auto 0.5 % (0-2); Eosinophils Absolute Auto 200 /uL (0-450); Eosinophils Percent Auto 2.2 % (2-4); Hematocrit 36.6 % (36-46); Hemoglobin 12.3 g/dL (12.0-16.0); Lymphocytes Absolute Auto 2200 /uL (1100-4500); Lymphocytes Percent Auto 30.4 % (25-40); Mean Corpuscular HGB Conc 33.5 % (30-36); Mean Corpuscular Hemoglobin 30.8 PG (26-34); Mean Corpuscular Volume 91.9 fL (80-100); Monocytes Absolute Auto 500 /uL (0-900); Monocytes Percent Auto 6.3 % (3-14); Neutrophils Absolute Auto 4400 /uL (1500-7000); Neutrophils Percent Auto 60.6 % (50-75); Platelet Count 223 X10^3/uL (150-400); Red Blood Cell Count 3.98 X10^6/uL (4.0-5.2); Red Cell Distribution Width 12.8 % (11.6-14.8); White Blood Cell Count 7.2 X10^3/uL (4.5-11.0)
[2020-10-16 09:42] LABS: Alanine Aminotransferase 16 IU/L (<35); Albumin 4.4 g/dL (3.5-5.0); Albumin Globulin Ratio 1.7 (1.0-2.8); Alkaline Phosphatase 41 U/L (38-126); Aspartate Aminotransferase 22 IU/L (14-36); BUN Creatinine Ratio 19.2 (6-22); Bilirubin Total 0.4 mg/dL (0.2-1.3); Blood Urea Nitrogen 10 mg/dL (7-17); Calcium 9.3 mg/dL (8.4-10.2); Carbon Dioxide 29 mmol/L (22-32); Chloride 102 mmol/L (98-107); Cholesterol 181 mg/dL (140-199); Estimated Glomerular Filt Rate > 60.0 mL/min (>60); Globulin 2.6 g/dL (1.7-4.1); Glucose 94 mg/dL (70-100); HDL Cholesterol 79 mg/dL (40-60); HEMOLYSIS < 15 (0-50); LDL Cholesterol Calculated 91 mg/dL (<100); Potassium 3.9 mmol/L (3.4-5.1); Sodium 137 mmol/L (137-145); Triglycerides 56 mg/dL (35-150)
== END ==
PROVIDERS: PCP Nurse Practitioner Family; Referring Provider Nurse Practitioner Family; Visit Provider Nurse Practitioner Family
DX: Z00.00 Encounter for general adult medical examination without abnormal findings (principal); Z13.6 Encounter for screening for cardiovascular disorders
CPT/HCPCS: 36415; 80053; 80061; 85025

== ENCOUNTER → 2020-10-22 16:06 | Outpatient (CLI) | payer OTHER, SELFPAY ==
--- NOTE | 2020-10-22 16:08 | DI.US.S_ITS ---
PROCEDURE: US PELVIC LIMITED INDICATIONS: IUD check TECHNIQUE: Real-time transabdominal scanning was performed of the pelvic organs, with image documentation. COMPARISON: None. FINDINGS: Uterus: Uterus is normal in size at 4.9 x 4 x 6 cm. An IUD is seen at its expected location. The endometrial stripe is obscured by the IUD. Ovaries: The right ovary measures 2.9 x 2.9 x 2.2 cm. The left ovary measures 2.2 x 2.7 x 1.3 cm. The ovaries have a normal sonographic appearance. No adnexal masses are seen. Other: No free pelvic fluid. IMPRESSION: The IUD is seen at its expected location. Dictated by: Jayjay Green M.D. on 10/22/2020 at 16:41 Approved by: Jayjay Green M.D. on 10/22/2020 at 16:42
== END ==
PROVIDERS: PCP Nurse Practitioner Family; Referring Provider Nurse Practitioner Family; Visit Provider Nurse Practitioner Family
DX: Z30.431 Encounter for routine checking of intrauterine contraceptive device (principal)
CPT/HCPCS: 76830

== ENCOUNTER → 2020-10-28 11:59 | Outpatient (CLI) | payer OTHER, SELFPAY ==
[2020-10-28] MEDS: COVID-19 VACC #1, MRNA(MOD) 100 MCG/0.5 ML VIAL IM (12:08)
== END ==
PROVIDERS: PCP Nurse Practitioner Family; Visit Provider Internal Medicine
DX: Z23 Encounter for immunization (principal)
CPT/HCPCS: 0011A; 91301

== ENCOUNTER → 2020-11-25 11:53 | Outpatient (CLI) | payer OTHER, SELFPAY ==
[2020-11-25] MEDS: COVID-19 VACC #2, MRNA(MOD) 100 MCG/0.5 ML VIAL IM (12:05)
== END ==
PROVIDERS: PCP Nurse Practitioner Family; Visit Provider Internal Medicine
DX: Z23 Encounter for immunization (principal)
CPT/HCPCS: 0012A; 91301

== ENCOUNTER → 2021-02-11 10:39 | Outpatient (ROUT) | payer OTHER, SELFPAY ==
[2021-02-11 11:05] LABS: COVID19 -Nasal RAPID Negative (Negative)
== END ==
PROVIDERS: PCP Nurse Practitioner Family; Visit Provider Physician Assistant
DX: R05 Cough (principal); Z20.822 Contact with and (suspected) exposure to COVID-19
CPT/HCPCS: 87635

== ENCOUNTER → 2023-08-13 11:02 | Outpatient (CLI) | payer OTHER, SELFPAY ==
[2023-08-13 12:31] LABS: Influenza A - CEPHEID Flu A NEGATIVE (NEGATIVE); Influenza B - CEPHEID Flu B NEGATIVE (NEGATIVE); Respiratory Syncytial Virus POSITIVE (Negative)
[2023-08-13 12:32] LABS: COVID-19 CEPHEID 4-PLEX PCR Negative (Negative)
== END ==
PROVIDERS: PCP Registered Nurse Diabetes Educator; Visit Provider Physician Assistant
DX: R05.1 Acute cough (principal)
CPT/HCPCS: 0241U

== ENCOUNTER → 2023-10-05 09:09 | Outpatient (CLI) | payer OTHER, SELFPAY ==
[2023-10-05 10:04] LABS: Hemoglobin 13.1 g/dL (12.0-16.0); Mean Corpuscular HGB Conc 34.4 % (30-36); Mean Corpuscular Hemoglobin 30.9 PG (26-34); Mean Corpuscular Volume 89.9 fL (80-100); Platelet Count 248 X10^3/uL (150-400); Red Blood Cell Count 4.23 X10^6/uL (4.0-5.2); Red Cell Distribution Width 12.8 % (11.6-14.8); White Blood Cell Count 7.1 X10^3/uL (4.5-11.0)
[2023-10-05 10:18] LABS: Alanine Aminotransferase 45 IU/L (<35); Albumin 4.7 g/dL (3.5-5.0); Albumin Globulin Ratio 1.4 (1.0-2.8); Alkaline Phosphatase 55 U/L (38-126); Aspartate Aminotransferase 35 IU/L (14-36); BUN Creatinine Ratio 20.7 (6-22); Bilirubin Total 0.7 mg/dL (0.2-1.3); Blood Urea Nitrogen 12 mg/dL (7-17); Calcium 9.7 mg/dL (8.4-10.2); Carbon Dioxide 28 mmol/L (22-32); Chloride 104 mmol/L (98-107); Cholesterol 193 mg/dL (140-199); Estimated Glomerular Filt Rate > 60 mL/min (>60); Globulin 3.3 g/dL (1.7-4.1); Glucose 93 mg/dL (70-100); HDL Cholesterol 81 mg/dL (40-60); HEMOLYSIS < 15 (0-50); LDL Cholesterol Calculated 101 mg/dL (<100); Potassium 3.7 mmol/L (3.4-5.1); Sodium 138 mmol/L (137-145); Triglycerides 56 mg/dL (35-150)
[2023-10-05 10:49] LABS: TSH w/ Reflex to FT4 2.04 uIU/mL (0.47-4.68)
== END ==
PROVIDERS: PCP Registered Nurse Diabetes Educator; Referring Provider Registered Nurse Diabetes Educator; Visit Provider Registered Nurse Diabetes Educator
DX: Z00.00 Encounter for general adult medical examination without abnormal findings (principal)
CPT/HCPCS: 36415; 80053; 80061; 84443; 85027

== ENCOUNTER → 2024-03-05 09:53 | Outpatient (CLI) | payer OTHER, SELFPAY ==
[2024-03-05 11:05] LABS: Alanine Aminotransferase 24 IU/L (<35); Albumin 4.6 g/dL (3.5-5.0); Albumin Globulin Ratio 1.5 (1.0-2.8); Alkaline Phosphatase 45 U/L (38-126); Aspartate Aminotransferase 27 IU/L (14-36); Bilirubin Total 0.4 mg/dL (0.2-1.3); Bilirubin Unconjugated 0.1 mg/dL (0.0-1.1); HEMOLYSIS < 15 (0-50); Total Protein 7.6 g/dL (6.3-8.2)
== END ==
PROVIDERS: PCP Registered Nurse Diabetes Educator; Referring Provider Registered Nurse Diabetes Educator; Visit Provider Registered Nurse Diabetes Educator
DX: R74.8 Abnormal levels of other serum enzymes (principal)
CPT/HCPCS: 36415; 80076

== ENCOUNTER → 2025-06-19 15:27 | Outpatient (CLI) | payer OTHER, SELFPAY ==
--- NOTE | 2025-06-19 15:28 | DI.MG.S_ITS ---
MM screening mammo BI: 06/19/2025. BI-RADS: 1 CLINICAL: 40-year old female for bilateral screening mammogram. Tyrer-Cuzick lifetime risk of 12.3%. No personal or first-degree family history of breast cancer. PRIOR EXAMS: None. This is a baseline mammogram. MAMMOGRAPHY TECHNIQUE: 2D and 3D (tomosynthesis) digital mammographic views obtained, with additional images as needed for full coverage. Current study was also evaluated with a Computer Aided Detection (CAD) system. DENSITY C. The breasts are heterogeneously dense, which may obscure small masses. MAMMOGRAPHY FINDINGS Bilateral: No suspicious mass, asymmetry, microcalcification, or other abnormality seen. IMPRESSION: * No evidence of malignancy. RECOMMENDATIONS Bilateral * Annual screening mammography. OVERALL ASSESSMENT CATEGORY BI-RADS-1: Negative. The [employer] recommends annual screening mammography beginning at age 40 for women with average risk of breast cancer. ELECTRONICALLY SIGNED: Daphne Manzanares M.D. on 06/21/2025 at 12:55:11 AM PT Interpreting Station ID: [id number]
== END ==
PROVIDERS: PCP Registered Nurse Diabetes Educator; Referring Provider Registered Nurse Diabetes Educator; Visit Provider Registered Nurse Diabetes Educator
DX: Z12.31 Encounter for screening mammogram for malignant neoplasm of breast (principal); R92.333 Mammographic heterogeneous density, bilateral breasts
CPT/HCPCS: 77063; 77067